=== PATIENT | female | born 1995 | race Two or more races ===

== ENCOUNTER 2018-08-20 19:43 | Emergency (ER) | payer SELFPAY ==
[~2018-08-20] VITALS: Ht 167.6 cm; Wt 90.7 kg
[2018-08-20 20:13] LABS: BILIRUBIN,URINE NEGATIVE (NEG); CLARITY,URINE CLEAR; COLOR,URINE YELLOW; NITRITE,URINE NEGATIVE (NEG); PH,URINE 5.5; PROTEIN,URINE NEGATIVE (NEG-TRACE)
--- NOTE | 2018-08-20 20:50 | PHYS DOC ---
Past Medical History Past Medical History: No Pertinent History Alcohol Use: None Drug Use: None Adult General Chief Complaint Chief Complaint: VAGINAL BLEEDING [facility] HPI Patient is a 22 year old female with no significant medical history who presents today complaining of vaginal bleeding in that began today. Patient states her last menstrual cycle was 07/30/2018. She is a 2 para 1. Patient denies any abdominal pain. Denies any nausea vomiting. Patient states she had a positive home test a couple days ago. Review of Systems Review of Systems Constitutional: Denies fever or chills [] Eyes: Denies change in visual acuity, redness, or eye pain [] HENT: Denies nasal congestion or sore throat [] Respiratory: Denies cough or shortness of breath [] Cardiovascular: No additional information not addressed in HPI [] GI: Reports vaginal bleeding in . Denies abdominal pain, nausea, vomiting, bloody stools or diarrhea [] : Denies dysuria or hematuria [] Musculoskeletal: Denies back pain or joint pain [] Integument: Denies rash or skin lesions [] Neurologic: Denies headache, focal weakness or sensory changes [] All other systems were reviewed and found to be within normal limits, except as documented in this note. Allergies Allergies Allergies Coded Allergies Type Severity Reaction Last Updated Verified No Known Drug Allergies 08/20/18 No Physical Exam Physical Exam Constitutional: Well developed, well nourished, no acute distress, non-toxic appearance. [] HENT: Normocephalic, atraumatic, bilateral external ears normal, oropharynx moist, no oral exudates, nose normal. [] Eyes: PERRLA, EOMI, conjunctiva normal, no discharge. [] Neck: Normal range of motion, no tenderness, supple, no stridor. [] Cardiovascular:Heart rate regular rhythm, no murmur [] Lungs & Thorax: Bilateral breath sounds clear to auscultation [] Abdomen: Bowel sounds normal, soft, no tenderness, no masses, no pulsatile masses. [] Pelvic exam External pelvic appears normal, cervix not well visualized, small amount of bright red blood noted in the vaginal vault, no adnexal tenderness, no CMT. Skin: Warm, dry, no erythema, no rash. [] Back: No tenderness, no CVA tenderness. [] Extremities: No tenderness, no cyanosis, no clubbing, ROM intact, no edema. [] Neurologic: Alert and oriented X 3, normal motor function, normal sensory function, no focal deficits noted. [] Psychologic: Affect normal, judgement normal, mood normal. [] Current Patient Data Vital Signs Vital Signs Date Time Temp Pulse Resp B/P (MAP) Pulse Ox O2 Delivery O2 Flow Rate FiO2 08/20/18 20:02 98.1 75 18 117/72 (87) 98 Room Air 98.1 Lab Values Laboratory Tests Test 08/20/18 19:50 08/20/18 20:02 08/20/18 20:45 Urine Collection Type Void Urine Color Yellow Urine Clarity Clear Urine pH 5.5 Urine Specific [place] 1.015 Urine Protein Negative mg/dL (NEG-TRACE) Urine Glucose (UA) Negative mg/dL (NEG) Urine Ketones (Stick) Negative mg/dL (NEG) Urine Blood Large (NEG) Urine Nitrite Negative (NEG) Urine Bilirubin Negative (NEG) Urine Urobilinogen Dipstick 1.0 mg/dL (0.2 mg/dL) Urine Leukocyte Esterase Negative (NEG) Urine RBC Occ /HPF (0-2) Urine WBC Rare /HPF (0-4) Urine Squamous Epithelial Cells Few /LPF Urine Bacteria 0 /HPF (0-FEW) POC Urine HCG, Qualitative Hcg negative (Negative) White Blood Count 9.0 x10^3/uL (4.0-11.0) Red Blood Count 4.41 x10^6/uL (3.50-5.40) Hemoglobin 12.7 g/dL (12.0-15.5) Hematocrit 36.9 % (36.0-47.0) Mean Corpuscular Volume 84 fL (79-100) Mean Corpuscular Hemoglobin 29 pg (25-35) Mean Corpuscular Hemoglobin Concent 34 g/dL (31-37) Red Cell Distribution Width 13.5 % (11.5-14.5) Platelet Count 206 x10^3/uL (140-400) Neutrophils (%) (Auto) 70 % (31-73) Lymphocytes (%) (Auto) 23 % (24-48) L Monocytes (%) (Auto) 6 % (0-9) Eosinophils (%) (Auto) 1 % (0-3) Basophils (%) (Auto) 0 % (0-3) Neutrophils # (Auto) 6.3 x10^3uL (1.8-7.7) Lymphocytes # (Auto) 2.1 x10^3/uL (1.0-4.8) Monocytes # (Auto) 0.6 x10^3/uL (0.0-1.1) Eosinophils # (Auto) 0.1 x10^3/uL (0.0-0.7) Basophils # (Auto) 0.0 x10^3/uL (0.0-0.2) Maternal Serum HCG Beta Subunit 2 mIU/mL (0-5) Sodium Level 143 mmol/L (136-145) Potassium Level 3.8 mmol/L (3.5-5.1) Chloride Level 104 mmol/L (98-107) Carbon Dioxide Level 27 mmol/L (21-32) Anion Gap 12 (6-14) Blood Urea Nitrogen 11 mg/dL (7-20) Creatinine 0.6 mg/dL (0.6-1.0) Estimated GFR (Cockcroft-Gault) 122.8 BUN/Creatinine Ratio 18 (6-20) Glucose Level 96 mg/dL (70-99) Calcium Level 8.9 mg/dL (8.5-10.1) Total Bilirubin 0.3 mg/dL (0.2-1.0) Aspartate Amino Transferase (AST) 13 U/L (15-37) L Alanine Aminotransferase (ALT) 15 U/L (14-59) Alkaline Phosphatase 63 U/L (46-116) Total Protein 7.7 g/dL (6.4-8.2) Albumin 3.8 g/dL (3.4-5.0) Albumin/Globulin Ratio 1.0 (1.0-1.7) Laboratory Tests 08/20/18 20:45 Laboratory Tests 08/20/18 20:45 Microbiology 08/20/18 Wet Prep - Final, Complete EKG EKG [] Radiology/Procedures Radiology/Procedures []PROCEDURE: OB <14 WKS W/TV EXAM: OBSTETRIC ULTRASOUND <14 WEEKS. HISTORY: Vaginal bleeding in . FINDINGS: Sonographic evaluation of the pelvis was performed transabdominally and transvaginally. The uterus is anteverted and measures 9 x 5 x 4 cm. No intrauterine gestation is yet detectable. The endometrial stripe measures only 6 mm. There is no significant free fluid. The right ovary measures 6.0 x 4.7 x 4.2 cm. And contains a hypoechoic heterogeneous cyst measuring 4.0 x 4.7 x 4.1 cm. No internal flow is identified. The left ovary measures 3.1 x 2.1 x 1.6 cm. There are no suspicious lesions. There is normal flow bilaterally. IMPRESSION: 1. No intrauterine gestation is yet detectable. Correlate with quantitative beta hCG to determine if this is appropriate. Ongoing follow-up of quantitative beta hCG is recommended. 2. A 4.7 cm heterogeneous cystic mass in the right adnexa is consistent with a hemorrhagic cyst. Attention on ongoing follow-up is recommended to confirm resolution. Electronically signed by: Theo Cevallos MD (08/20/2018 9:48 PM) [facility] DICTATED and SIGNED BY: TOMEKA CEVALLOS MD DATE: 08/20/182143 Course & Med Decision Making Course & Med Decision Making Pertinent Labs and Imaging studies reviewed. (See chart for details) This is a 22-year-old female patient presenting to the ED today with vaginal bleeding in that began today, last menstrual cycle was 07/30/2018.. Negative urine hCG. Beta hCG 2. Blood group all positive. OB ultrasound was negative for an IUP. Serial beta hCGs recommended. This patient is not considering our tests. Patient was discharged with instructions to follow-up with her EMPLOYMENT CLERK for serial beta hCGs. Dragon Disclaimer Dragon Disclaimer This electronic medical record was generated, in whole or in part, using a voice recognition dictation system. Departure Departure Impression: Primary Impression: Dysfunctional uterine bleeding Disposition: 01 HOME, SELF-CARE Condition: STABLE Referrals: ALEX ORTEGA MD follow up in one week Patient Instructions: Uterine Bleeding, Dysfunctional, [id number] Additional Instructions: You were seen for vaginal bleeding. Your tests were negative in the emergency room. Please follow-up with your EMPLOYMENT CLERK for repeat beta hCG. NEERAJ ALANIZ APRN Aug 20, 2018 20:50
[2018-08-20 20:51] LABS: BACTERIA,URINE 0 /HPF (0-FEW); RBC,URINE OCC /HPF (0-2); SQUAMOUS EPITHELIAL CELL,UR FEW /LPF; WBC,URINE RARE /HPF (0-4)
[2018-08-20 21:08] LABS: BASO % 0 % (0-3); EOS # 0.1 x10^3/uL (0.0-0.7); EOS % 1 % (0-3); HEMATOCRIT 36.9 % (36.0-47.0); HEMOGLOBIN 12.7 g/dL (12.0-15.5); LYMPH # 2.1 x10^3/uL (1.0-4.8); LYMPH % 23 % (24-48); MEAN CORPUSCULAR HEMOGLOBIN 29 pg (25-35); MEAN CORPUSCULAR HGB CONC 34 g/dL (31-37); MEAN CORPUSCULAR VOLUME 84 fL (79-100); MONO # 0.6 x10^3/uL (0.0-1.1); MONO % 6 % (0-9); NEUT # 6.3 x10^3uL (1.8-7.7); NEUT % 70 % (31-73); PLATELET COUNT 206 x10^3/uL (140-400); RED BLOOD COUNT 4.41 x10^6/uL (3.50-5.40); RED CELL DISTRIBUTION WIDTH 13.5 % (11.5-14.5)
[2018-08-20 21:18] LABS: CALCIUM 8.9 mg/dL (8.5-10.1); CREATININE 0.6 mg/dL (0.6-1.0); GFR 122.8; POTASSIUM 3.8 mmol/L (3.5-5.1)
[2018-08-20 21:23] LABS: ALBUMIN 3.8 g/dL (3.4-5.0); TOTAL BILIRUBIN 0.3 mg/dL (0.2-1.0); TOTAL PROTEIN 7.7 g/dL (6.4-8.2)
--- NOTE | 2018-08-20 21:51 | RAD ---
EXAM: OBSTETRIC ULTRASOUND <14 WEEKS. HISTORY: Vaginal bleeding in . FINDINGS: Sonographic evaluation of the pelvis was performed transabdominally and transvaginally. The uterus is anteverted and measures 9 x 5 x 4 cm. No intrauterine gestation is yet detectable. The endometrial stripe measures only 6 mm. There is no significant free fluid. The right ovary measures 6.0 x 4.7 x 4.2 cm. And contains a hypoechoic heterogeneous cyst measuring 4.0 x 4.7 x 4.1 cm. No internal flow is identified. The left ovary measures 3.1 x 2.1 x 1.6 cm. There are no suspicious lesions. There is normal flow bilaterally. IMPRESSION: 1. No intrauterine gestation is yet detectable. Correlate with quantitative beta hCG to determine if this is appropriate. Ongoing follow-up of quantitative beta hCG is recommended. 2. A 4.7 cm heterogeneous cystic mass in the right adnexa is consistent with a hemorrhagic cyst. Attention on ongoing follow-up is recommended to confirm resolution. Electronically signed by: Theo Cevallos MD (08/20/2018 9:48 PM) [facility]
[2018-08-20 22:55] VITALS: BP 109/66
== END 2018-08-20 22:55 | disposition home or self-care (01) ==
LOC: ER 19:43
DX: O20.8 Other hemorrhage in early pregnancy (principal); Z3A.01 Less than 8 weeks gestation of pregnancy
CPT/HCPCS: 76801; 76817; 80053; 81001; 81025; 84702; 85025; 86850; 86900; 86901; 99285; Q0111